=== PATIENT | male | born 1990 | race Caucasian/White ===

== ENCOUNTER → 2017-09-18 | Day surgery (SDC) | payer OTHER ==
[~2017-09-18] MED LIST: VICODIN 5-3001 EACH PO
--- NOTE | 2017-09-18 10:31 | Operative Report ---
Operative/Inv Procedure Report Surgery Date: 09/18/17 Name of Procedure: Right L5-S1 laminectomy, medial facetectomy, microdiscectomy Pre-Operative Diagnosis: Right L5-S1 herniated nucleus pulposus, lateral recess and foraminal stenosis Post-Operative Diagnosis: Same Estimated Blood Loss: scant, less than 50ml Surgeon/[employer] Worker: Ella RAMON,CUCO Neumann Anesthesia: general endotracheal tube IV Fluids: replaced with crystalloid Specimens: L5-S1 disc material Complications: None Condition: Stable Operative Indication: Patient is a 27-year-old gentleman with intractable right L5 and S1 radiculopathy. MRI imaging has identified a sizable right lateral and foraminal disc herniation at the L5-S1 level with severe impingement of the S1 and L5 roots. There is some moderate caudal extension. Patient has failed a comments of course of conservative treatment and now presents for operative intervention. Operative/Procedure Note Note: Patient was taken to the operating room. After appropriate patient identification and surgical timeout, the patient underwent the smooth induction of general endotracheal anesthesia without incident. With the tube secured a Mir catheter was sterilely inserted and the patient was carefully turned to the into the prone position on the Alfred frame taking care to ensure that all pressure points were well-padded. The lumbar region the low back was widely prepped and draped in usual sterile fashion using povidone iodine solution. A vertical midline skin incision was marked. Patient was given 2 g of IV Preoperative Prophylaxis. Skin Was Infiltrated with Local Anesthetic. A small gauge spinal needle was placed superficially and a lateral lumbar x-rays obtained to confirm this to be at the correct level of L5-S1. Skin incision was then made with a 10 blade knife. Dissection was carried down through the subcutaneous tissue with the Bovie to the lumbodorsal fascia. The the fascia was incised in the midline and a subperiosteal dissection of the right paravertebral muscles was performed with the Bovie exposing underlying spinous processes and lamina at L5-S1. A [place] elevator was placed under the presumed L5 lamina and intraoperative lateral x-ray obtained to confirm this to be at the correct level of L5-S1. With the level verified, self-retaining retractor was placed beneath the muscle. A laminotomy of the right L5 lamina was performed using combination of the Midas Jl and Leslie exposing the rostral aspect ligamentum flavum. Ligament was stripped in a rostral caudal fashion with Kerrisons exposing underlying epidural fat, dura of the midline thecal sac as well as the exiting right S1 root. We completed the laminotomy to the rostral aspect of the sacrum and performed foraminotomy of the S1 root skeletonizing the medial and caudal aspect of the pedicle. Medial facetectomy of the L5-S1 joint was performed using the drill and the Kerrisons to allow an adequate exposure lateral to the thecal sac. With exposure completed, the dural sac was gently mobilized to the midline and a large disc herniation was appreciated. The annulus was coagulated with a bipolar and incised in a rectangular fashion with an 11 blade knife. Immediately a large fragment extruded from the annular opening of was removed with a pituitary rongeur. Additional discectomy was completed with small straight and upgoing pituitary rongeurs until an excellent decompression of the lateral canal and epidural space was accomplished. A [place] elevator was used to palpate under the thecal sac which showed it to be completely decompress. The [place] could be easily passed both dorsal and ventral to the right S1 root. We also able to palpate rostrally to the level of the caudal aspect of the right L5 pedicle and there were no additional disc fragments appreciated at the proximal foramen. The decompression noted to be excellent, the wound was copious irrigated. A small amount of venous epidural bleeding was easily controlled with the bipolar. Bone edges were waxed. Patient was Valsalva to 30 mmHg with no evidence of bleeding and there is no evidence of a CSF leak and we began wound closure. X A small pledget of thrombin Gelfoam was placed in the interlaminar defect. A 40 mg/mL Depo-Medrol was then placed in the epidural space. A piece of fat harvested from the subcutaneous tissue was then placed over the exposed dura and we began closure. The lumbodorsal fascia was reapproximated with 0 Vicryl suture. 10 mL of extra long acting local anesthetic was infiltrated in the paravertebral muscle. The superficial wound was scoped C irrigated with bacitracin sterile saline irrigation and closed in layers with interrupted 2-0 Vicryl suture in subcutaneous tissue and a running 4-0 Vicryl subcutaneous stitch in the skin. Wounds clean and dry. Steri-Strips and a sterile occlusive dressing was placed. The patient was then returned to the supine position awakened extubated and taken to PACU in stable condition. He was noted to be moving all 4 extremities at the completion of the case. All sponge, needle, and injuring counts were correct at the completion of the procedure 3. Findings: Large extruded right L5-S1 herniated nucleus pulposus with significant compression of both the right L5 and S1 roots Discharge Disposition: PACU
--- NOTE | 2017-09-18 11:13 | RADIOLOGY REPORT ---
EXAMINATION: XR LUMBAR SPINE CLINICAL INFORMATION: Intraoperative radiographs for L5/S1 discectomy. COMPARISON: None TECHNIQUE: Single crosstable lateral radiographs of the lower lumbar spine were obtained at 8:00 AM and 8:23 AM. FINDINGS: On the first image there is a needle present within the soft tissues posterior to the L5/S1 disc space. Alignment of the visualized lower lumbar spine is grossly unremarkable. On the second image there is instrumentation posterior to the L5/S1 disc space. IMPRESSION: Sequential intraoperative x-rays with instrumentation at the L5/S1 level.
== END ==
LOC: STS 02:47
DX: M51.17 Intervertebral disc disorders with radiculopathy, lumbosacral region (principal); M48.07 Spinal stenosis, lumbosacral region
CPT/HCPCS: 36415; 72020; 88304; C9290; J0690; J1030; J2250; J3490